=== PATIENT | male | born 1945 | race Caucasian/White ===

== ENCOUNTER 2025-03-31 20:13 | Emergency (ER) | payer MEDICARE, BC ==
[~2025-03-31] VITALS: Ht 180.3 cm; Wt 85.9 kg
[2025-03-31 21:16] LABS: BASO # 0.0 10^3/uL (0.0-0.2); BASO % 0.7 % (0.0-1.0); EOS # 0.1 10^3/uL (0.0-0.5); EOS % 1.4 % (0.0-3.0); LYMPH # 2.3 10^3/uL (1.5-5.0); LYMPH % 38.2 % (24.0-44.0); MONO # 0.5 10^3/uL (0.0-0.8); MONO % 8.5 % (2.0-8.0); NEUTROPHILS # 3.0 10^3/uL (1.5-8.5); NEUTROPHILS % 50.5 % (36.0-66.0); PLATELET COUNT, AUTOMATED 175 10^3/uL (150-450)
[2025-03-31 21:34] LABS: CK-MB VALUE MASS 1.4 NG/ML (<3.6)
[2025-03-31 21:35] LABS: CALCIUM LEVEL 9.3 MG/DL (8.3-10.6); CARBON DIOXIDE LEVEL 23.0 MMOL/L (20-31); CHLORIDE LEVEL 105.0 MMOL/L (98-107); CREATININE FOR GFR 1.15 MG/DL (0.70-1.30); GLOMERULAR FILTRATION RATE 64.7 (>42); MAGNESIUM LEVEL 2.0 MG/DL (1.8-2.4); POTASSIUM SERUM 4.1 MMOL/L (3.5-5.1); SODIUM LEVEL 145.0 MMOL/L (136-145)
[2025-03-31 21:46] LABS: CPK CREATINE PHOSPHOKINASE 60.0 U/L (46-171); ETHYL ALCOHOL (ETHANOL) 0.33 % (0.000-0.010); MB/CK RELATIVE INDEX 2.33 (< OR =4)
[2025-03-31] MEDS ORDERED: ISOVUE-370 76% 100 ML VIAL As Ordered ONE (22:03)
[2025-04-01] MEDS: NS (Normal Saline) 0.9% 1,000 ML IV ONE (02:34)
[2025-04-01 04:24] VITALS: BP 122/60; TEMP 98.6; O2SAT 98
== END 2025-04-01 04:25 | disposition home or self-care (01) ==
LOC: M ED 20:13
DX: S01.01XA Laceration without foreign body of scalp, initial encounter (principal); F10.129 Alcohol abuse with intoxication, unspecified; E86.0 Dehydration; W19.XXXA Unspecified fall, initial encounter; Y92.009 Unspecified place in unspecified non-institutional (private) residence as the place of occurrence of the external cause; Y93.9 Activity, unspecified; Y99.9 Unspecified external cause status; D35.02 Benign neoplasm of left adrenal gland; M25.78 Osteophyte, vertebrae; M47.812 Spondylosis without myelopathy or radiculopathy, cervical region
CPT/HCPCS: 12002; 70450; 70486; 71045; 71275; 72125; 73030; 80048; 82077; 82550; 82553; 83735; 84443; 84484; 85025; 93005; 96360; 96361; 99285; Q9967

== ENCOUNTER 2025-04-05 15:27 | Emergency (ER) | payer BC, MEDICARE ==
[~2025-04-05] VITALS: Ht 180.3 cm; Wt 86.9 kg
[2025-04-05 17:20] VITALS: BP 130/65; TEMP 96.8; O2SAT 99
== END 2025-04-05 17:20 | disposition home or self-care (01) ==
LOC: M ED 15:27
DX: Z48.02 Encounter for removal of sutures (principal)